=== PATIENT | female | born 1975 | race Caucasian/White ===

== ENCOUNTER 2021-03-20 17:07 | Day surgery (SDC) | payer OTHER, SELFPAY ==
[2021-03-20] VITALS (12 sets, daily range): BP systolic 115–133; BP diastolic 66–92; PULSE 72–90; RESP 13–20; TEMP 36.2–36.9; O2SAT 95–98; BMI 26.4
--- NOTE | 2021-03-20 17:16 | CTR_ITS ---
PROCEDURE INFORMATION: Exam: CT Abdomen And Pelvis With Contrast Exam date and time: 03/20/2021 5:34 PM Age: 45 years old Clinical indication: Abdominal pain; Localized; Right lower quadrant (rlq); Prior surgery; Surgery date: 6+ months; Surgery type: Gb; Patient HX: C/O rlq abd pain w n/v; Additional info: Appendicitis TECHNIQUE: Imaging protocol: Computed tomography of the abdomen and pelvis with contrast. Radiation optimization: All CT scans at this facility use at least one of these dose optimization techniques: automated exposure control; mA and/or kV adjustment per patient size (includes targeted exams where dose is matched to clinical indication); or iterative reconstruction. Contrast material: OMNI 300; Contrast volume: 95 ml; Contrast route: INTRAVENOUS (IV); COMPARISON: CT Chest/Abdomen/Pelvis w IV* 11/23/2017 8:49 PM RADIATION DOSE METRICS: Total DLP (mGy-cm): 1216.76 FINDINGS: Liver: Normal. No mass. Gallbladder and bile ducts: The gallbladder has been removed. Pancreas: Normal. No ductal dilation. Spleen: Normal. No splenomegaly. Adrenal glands: Normal. No mass. Kidneys and ureters: Normal. No hydronephrosis. Stomach and bowel: Unremarkable. No obstruction. No mucosal thickening. Appendix: Appendix is thickened measuring 11 mm. There is mild periappendiceal E all inflammatory stranding. No abscess is seen. Intraperitoneal space: Unremarkable. No free air. No significant fluid collection. Vasculature: Unremarkable. No abdominal aortic aneurysm. Lymph nodes: Unremarkable. No enlarged lymph nodes. Urinary bladder: Unremarkable as visualized. Reproductive: 2.7 cm cyst with benign features in the right ovary. Follow-up is not necessary. There are heterogeneous lesions in the uterine myometrium the largest of which measures 17 mm. These likely represent fibroids. Bones/joints: Unremarkable. No acute fracture. Soft tissues: Unremarkable. CT/CT abdomen pelvis w con* [id number] IMPRESSION: Findings consistent with acute appendicitis. Radiation Dose CTDIVOL = (mGy): DLP = 1216.76 (mGy-cm)
--- NOTE | 2021-03-20 17:18 | W.ED.ABDPA2 ---
HPI - Abdominal Pain General: Chief Complaint: Abdominal Pain Stated Complaint: FEELS LIKE KNIFE STUCK IN STOMACH SINCE LAST PM Time Seen by Provider: 03/20/21 17:16 History of Present Illness: HPI narrative: 45-year-old female presents with periumbilical pain that started last night and radiates into the right lower quadrant. Patient reports she feels like she has a knife stuck in her stomach. She started get nausea this afternoon. She last ate around 1 PM. As significant pain with the right hand and if she hits her right foot on the floor it radiates into the right lower quadrant. Patient has had her gallbladder out with no other surgeries. Associated Symptoms: Reports nausea and vomiting; Denies chills, dysuria and fever(s) Review of Systems Const: Denies: fever(s) or chills ENMT: Denies: throat pain Card: Denies: chest pain or palpitations Resp: Denies: dyspnea or productive cough GI: Reports: abdominal pain, nausea and vomiting : Denies: difficulty voiding or dysuria Musc: Denies: neck pain Skin/Breast: Denies: rash Neuro: Denies: headache(s) Psych: Denies: anxiety Physical Exam Const: COMMON NORMALS: patient oriented x3 GENERAL APPEARANCE: other (Uncomfortable, bent over with her hand on her stomach) HENMT: COMMON NORMALS: normocephalic and atraumatic HEAD & SCALP: normocephalic and atraumatic Resp: COMMON NORMALS: normal respiratory effort and No retractions Cardio: COMMON NORMALS: regular rate and regular rhythm RATE: regular rate RHYTHM: regular rhythm GI: COMMON NORMALS: Soft to palpation PALPATION: Yes Soft to palpation, Yes Tenderness to palpation present (GI) Details: RLQ, Yes Guarding due to palpation present (GI) and Yes Rebound tenderness present Extremity: COMMON NORMALS: normal to inspection and full ROM Neuro: COMMON NORMALS: patient oriented x3, moves all extremities and no focal motor deficits Psych: COMMON NORMALS: mental status grossly normal and cooperative ATTITUDE: Yes calm Skin: COMMON NORMALS: no rashes or lesions noted GENERAL SKIN EXAM: no rashes or lesions noted Coding Level of Care Code ED Assistant At Surgery for Jayy Momin
[2021-03-20] MEDS: ondansetron 2 mg/ML SDV 2 mL 4 MG IVP (17:46)
[2021-03-20] MEDS: sodium chloride 0.9% 1,000 ML 999 ML IV (17:47)
[2021-03-20] MEDS: fentaNYL 50 mcg/mL INJ 2mL IVP ×2 (17:47→19:28)
[2021-03-20 17:55] LABS: Add Urine Microscopic? YES; Bilirubin Urine 1+ (Negative); Blood Urine Neg (Negative); Glucose Urine UA Norm (Normal); Ketones Urine Negative (Negative); Leukocyte Esterase Urine 1+ (Negative); Nitrate Urine Negative (Negative); Protein Urine Neg (Negative); Specific Gravity, Urine 1.025 (1.005-1.030); Urine Appearance Hazy (CLEAR); Urine Color Yellow (Yellow); Urobilinogen Urine Norm (Negative); pH Urine 5 (5-7)
[2021-03-20 17:56] LABS: Add Urine Culture? No; Bacteria Urine 2+ /hpf; HCG Qualitative Urine. Negative (Negative)
[2021-03-20 18:02] LABS: Basophils % 0.5 %; Eosinophils # 0.2 10^3/uL (0.0-0.8); Eosinophils % 2.6 %; Hematocrit 41.9 % (37.0-47.0); Hemoglobin 14.1 g/dL (11.5-15.3); Lymphocytes # 2.4 10^3/uL (0.8-4.8); Lymphocytes % 28.3 %; Mean Corpuscular HGB Conc 33.7 g/dL (30.0-36.0); Mean Corpuscular Hemoglobin 31.5 pg (28.0-34.0); Mean Corpuscular Volume 93.7 fL (81-99); Mean Platelet Volume 10.6 fL (7.4-10.4); Monocytes # 0.9 10^3/uL (0.2-0.9); Monocytes % 10.2 %; Neutrophils # 4.87 10^3/uL (1.8-7.7); Neutrophils % 58.2 %; Nucleated Red Blood Cells % 0 %; Platelet Count 230 10^3/cmm (130-400); Red Blood Count 4.47 10^6/uL (4.1-5.3); Red Cell Distribution Width 12.3 % (12.1-15.1); White Blood Count 8.4 10^3/uL (4.0-10.0)
[2021-03-20] MEDS: iohexol 300 mg/mL 100 mL Btl IV (18:14)
[2021-03-20 18:55] LABS: Alanine Aminotransferase 6 U/L (0-33); Albumin Level 3.9 g/dL (3.5-5.2); Alkaline Phosphatase 72 IU/L (35-105); Anion Gap 10.8 (5-19); Aspartate Amino Transferase 16 U/L (0-32); Blood Urea Nitrogen 13 mg/dL (6-20); Calcium 8.1 mg/dL (8.5-10.5); Carbon Dioxide 28 mmol/L (22-29); Chloride 100 mmol/L (98-107); Globulin 2.9 g/dL (1.3-4.6); Glomerular Filtration Rate 107.6 mL/min (90-130); Glucose 86 mg/dL (65-115); Osmolality Calculated 279 mOsm/kg (285-295); Potassium 3.8 mmol/L (3.5-5.1); Sodium 135 mmol/L (136-145); Total Bilirubin 0.5 mg/dL (0.15-1.2); Total Protein 6.8 g/dL (6.6-8.7)
[2021-03-20] MEDS: piperacillin-tazobactam 3.375 GM in sodium chloride 0.9% (plus) 50 ML IV (19:04)
--- NOTE | 2021-03-20 20:00 | PC.NURSE ---
1958 Pt taken by stretcher to OR. A/O x4 at bedside belongings sent with patient
--- NOTE | 2021-03-20 20:08 | P.HP_ITS ---
Providers/Chief Complaint Primary Care Provider: Alice Elder MD Chief Complaint: FEELS LIKE KNIFE STUCK IN STOMACH SINCE LAST PM History of Present Illness Cadence Tang is a 45 year old female who presented to the ER today with 24- hour history of periumbilical pain. Patient states that the pain radiated to the right lower quadrant when she was moving. No relieving factors. She had some nausea today denies any vomiting. Denies any fevers chills constipation or diarrhea. Denies any urinary symptoms. No prior colonoscopy family history of colon cancer. Review of Systems General: Reports: 10 or more systems reviewed and unremarkable except in HPI and below Medications/Allergies Allergies Allergy/AdvReac Type Severity Reaction Status Date / Time erythromycin base Allergy Unknown Verified 03/20/21 17:16 PFSH Acute PFSH: Medical History (Updated 03/20/21 @ 20:08 by Matthew Cartagena MD) SVT (supraventricular tachycardia) Surgical History H/O cardiac radiofrequency ablation Status post laparoscopic cholecystectomy Status post surgery cervical ablation Vitals/I&O/Wt Last Vital Signs Temp 97.6 F 03/20/21 19:33 Pulse 72 03/20/21 19:33 Resp 16 03/20/21 19:33 BP 127/83 03/20/21 19:33 Pulse Ox 97 03/20/21 19:33 03/20/21 03/20/21 03/20/21 06:59 14:59 22:59 Intake Total 1050 / 1050 Balance 1050 / 1050 Weight last 48 hrs Weight 135 lb Physical Exam Narrative: EXAM NARRATIVE: HEENT: Normocephalic Eye: Sclera /conjunctiva normal Respiratory and chest: Bilateral clear breath sounds on auscultation Cardiovascular: Normal S1 and S2 heart sounds Abdomen: Soft to palpation, tender right lower quadrant, no guarding or rigidity Neurological: Oriented to place person and time Skin: Intact, no lesions appreciated on gross exam Data : 03/20/21 17:55 03/20/21 18:28 A&P Assessment and plan (1) Acute appendicitis: 45-year-old female with 24-hour history of right lower quadrant pain, nausea, tender right lower quadrant, WBC is 8.[address] scan showed acute appendicitis Plan for laparoscopic possible open appendectomy Procedure, risks, benefits and alternatives have been discussed with the patient who wishes to proceed with surgery. Status: Acute Qualifiers: Acute appendicitis type: with localized peritonitis Appendicitis abscess presence: without abscess Appendicitis gangrene presence: without gangrene Appendicitis perforation presence: without perforation Qualified Code(s): K35.30 - Acute appendicitis with localized peritonitis, without perforation or gangrene Attestations Medical Necessity Statement*: Acute appendicitis Coding Level of Care Code Acute Screw Cutter for [facility] Diagnoses Acute appendicitis K35.30 Acute appendicitis type: with localized peritonitis Appendicitis abscess presence: without abscess Appendicitis gangrene presence: without gangrene Appendicitis perforation presence: without perforation
--- NOTE | 2021-03-20 20:11 | PM.OP ---
Operative Report Date of procedure: March 20, 2021 Pre-op Diagnosis: acute appendicitis Post-op diagnosis: same Procedure Done: Laparoscopic appendectomy Specimens removed/disposition: Appendix Surgeon: Matthew Cartagena Anesthesia: General Condition: stable Disposition: PACU Procedure: The patient was taken to the Operating Room and intubated under general anesthesia after antibiotic had been administered. Using a 15 blade, a 1-cm infraumbilical incision was made and using open Erica technique, the peritoneal cavity was entered. A 12mm port with balloon was placed and 15 mm of pneumoperitoneum was created and 10-mm 30 degree scope was introduced. Two separate 5mm ports were placed in the left and right lower quadrant under direct visualization. The appendix was noted in the right lower quadrant and appeared acutely inflamed.. Using [place] forceps, an opening was made in the mesoappendix near the base of the appendix. An Endo ARIN stapler 45mm long 3.5mm blue load was introduced to divide the appendix at it's base. Using electrocautery, the mesoappendix including the appendicular artery was divided. There was no bleeding noted and the staple line appeared intact. EndoCatch bag was introduced to remove the appendix. All three ports were removed under direct visualization and there was no bleeding noted on the port sites. 10 cc of 0.5% Marcaine was infiltrated at the port sites. The fascia at the umbilical port was closed using figure of eight 0-Vicryl sutures and subcutaneous tissue was approximated using 3-0 Vicryl and skin at all 3 port sites was closed using 4-0 Monocryl and Dermabond. The patient was extubated and transferred to recovery room in stable condition
--- NOTE | 2021-03-20 20:13 | P.ANESASSM_ITS ---
Pre-Anesthetic Assessment Pre-Anesthetic Assessment: Height/Weight: Height 1.52 m Weight 61.235 kg Temp Pulse Resp BP Pulse Ox 97.6 F 72 16 127/83 95 03/20/21 19:33 03/20/21 20:04 03/20/21 20:04 03/20/21 20:04 03/20/21 20:04 Preop Diagnosis: acute appendicitis Proposed Procedure: Operation Date: 03/20/21 19:35 Proposed Procedures p Laparoscopic Appendectomy(Not Applicable) - Matthew Cartagena MD Operation Date: 03/20/21 20:20 Proposed Procedures p Laparoscopic Appendectomy(Not Applicable) - Matthew Cartagena MD Last intake: Intake Last Liquid Date 03/20/21 Last Liquid Time 13:00 Last Solid Date 03/20/21 Last Solid Time 13:00 Social: Social History: No alcohol and No tobacco Exam: Pre-Anes Outpt Exam: alert, oriented x 3, clear to auscultation bilaterally and regular rate & rhythm Airway: Submandibular: WNL Cervical ROM: WNL MP: 2 History/ROS: No significant complaints Pulmonary: Pulmonary: None reported CV/HEM: CV/HEM: Arrythmia Comments: Had a cardiac ablation and has not had any problems since : : None reported Hepatic: Hepatic: None reported GI: Comments: 24 hrs of central abdominal pain which has localized to the right lower quadrant Metabolic: Metabolic: None reported Musc/skel: Musc/skel: None reported Neuropsych: Neuropsych: None reported Anesthetic Plan: ASA status: 2E Anesthesia: General Risk of > 500 ml blood loss (7ml/kg in children): Yes, adequate IV access and fluids planned PFSH Anesthesia PFSH: Medical History (Updated 03/20/21 @ 20:11 by Matthew Cartagena MD) SVT (supraventricular tachycardia) Surgical History (Updated 03/20/21 @ 20:11 by Matthew Cartagena MD) H/O cardiac radiofrequency ablation S/P laparoscopic appendectomy (03/20/21) Status post laparoscopic cholecystectomy Status post surgery cervical ablation Data Anesthesia CBC & Chem 7: 03/20/21 17:55 03/20/21 18:28 Other Labs: Laboratory Results - last 48 hr 03/20/21 03/20/21 03/20/21 17:25 17:25 17:55 WBC 8.4 RBC 4.47 Hgb 14.1 Hct 41.9 MCV 93.7 MCH 31.5 MCHC 33.7 RDW 12.3 Plt Count 230 MPV 10.6 H Neut % (Auto) 58.2 Lymph % (Auto) 28.3 [place] % (Auto) 10.2 Eos % (Auto) 2.6 Baso % (Auto) 0.5 Neut # (Auto) 4.87 Lymph # (Auto) 2.4 [place] # (Auto) 0.9 Eos # (Auto) 0.2 Baso # (Auto) 0.0 Nucleated RBC % (auto) 0 Nucleated RBCs # 0.0 Sodium Potassium Chloride Carbon Dioxide Anion Gap BUN Creatinine GFR Calculation Glucose Calculated Osmolality Calcium Total Bilirubin AST ALT Alkaline Phosphatase Total Protein Albumin Globulin HCG, Qual Negative Urine Color Yellow Urine Appearance Hazy A Urine pH 5 Ur Specific [place] 1.025 Urine Protein Neg Urine Glucose (UA) Norm Urine Ketones Negative Urine Blood Neg Urine Nitrate Negative Urine Bilirubin 1+ H Urine Urobilinogen Norm Ur Leukocyte Esterase 1+ H Urine RBC None Urine WBC 5-10 H Ur Squamous Epith Cells 10-15 H Amorphous Sediment Not Reportable Urine Bacteria 2+ H 03/20/21 03/20/21 17:55 18:28 WBC RBC Hgb Hct MCV MCH MCHC RDW Plt Count MPV Neut % (Auto) Lymph % (Auto) [place] % (Auto) Eos % (Auto) Baso % (Auto) Neut # (Auto) Lymph # (Auto) [place] # (Auto) Eos # (Auto) Baso # (Auto) Nucleated RBC % (auto) Nucleated RBCs # Sodium Cancelled 135 L Potassium Cancelled 3.8 Chloride Cancelled 100 Carbon Dioxide Cancelled 28 Anion Gap Cancelled 10.8 BUN Cancelled 13 Creatinine Cancelled 0.6 GFR Calculation Cancelled 107.6 Glucose Cancelled 86 Calculated Osmolality Cancelled 279 L Calcium Cancelled 8.1 L Total Bilirubin Cancelled 0.5 AST Cancelled 16 ALT Cancelled 6 Alkaline Phosphatase Cancelled 72 Total Protein Cancelled 6.8 Albumin Cancelled 3.9 Globulin Cancelled 2.9 HCG, Qual Urine Color Urine Appearance Urine pH Ur Specific [place] Urine Protein Urine Glucose (UA) Urine Ketones Urine Blood Urine Nitrate Urine Bilirubin Urine Urobilinogen Ur Leukocyte Esterase Urine RBC Urine WBC Ur Squamous Epith Cells Amorphous Sediment Urine Bacteria Cardiac Studies: No Data to Display
--- NOTE | 2021-03-20 21:18 | SUR.PHASEI ---
[id number] PATIENT TO PACU AT THIS TIME FROM OR. NO DISTRESS. 3 INCISIONS TO ABDOMEN, CLOSED WITH DERMABOND, CLEAN,DRY AND INTACT.
--- NOTE | 2021-03-20 21:25 | SUR.PHASEI ---
212 DISCHARGE INSTRUCTIONS REVIEWED WITH PATIENT. VERBALIZED UNDERSTANDING OF TEACHING, FOLLOW UP APPOINTMENT AND NEW PRESCRIPTIONS.
--- NOTE | 2021-03-20 21:47 | SUR.PHASEI ---
2148 PATIENT DISCHARGED TO HOME IN CARE OF SPOUSE. NO DISTRESS. 3 INCISIONS, CDI. PATIENT TO VEHICLE VIA W/C.
== END 2021-03-20 21:47 | disposition home or self-care (01) ==
LOC: ER 19:45 → OR 20:00
PROVIDERS: Student in an Organized Health Care Education/Training Program; Emergency Provider Emergency Medicine; PCP Internal Medicine; Visit Provider Surgery
PROC: 0DTJ4ZZ Resection of Appendix, Percutaneous Endoscopic Approach (ICD-10-PCS; CPT 44970; principal; 2021-03-20 19:35)
DX: K35.30 Acute appendicitis with localized peritonitis, without perforation or gangrene (principal)
CPT/HCPCS: 44970; 36415; 74177; 80053; 81001; 81025; 85025; 88304; J1100; J1885; J2405; J2543; J2710; J3010; J3490; J7030; Q9967

== ENCOUNTER 2021-03-29 08:52 | Outpatient (CLI) | payer OTHER, SELFPAY ==
[2021-03-29 09:13] LABS: Basophils # 0.1 10^3/uL (0.0-0.1); Eosinophils # 0.6 10^3/uL (0.0-0.8); Eosinophils % 10.2 %; Hematocrit 41.3 % (37.0-47.0); Hemoglobin 13.7 g/dL (11.5-15.3); Lymphocytes # 1.8 10^3/uL (0.8-4.8); Lymphocytes % 29.1 %; Mean Corpuscular HGB Conc 33.2 g/dL (30.0-36.0); Mean Corpuscular Hemoglobin 31.1 pg (28.0-34.0); Mean Corpuscular Volume 93.7 fL (81-99); Mean Platelet Volume 9.5 fL (7.4-10.4); Monocytes # 0.6 10^3/uL (0.2-0.9); Monocytes % 9.7 %; Neutrophils # 3.13 10^3/uL (1.8-7.7); Neutrophils % 49.7 %; Nucleated Red Blood Cells % 0 %; Platelet Count 346 10^3/cmm (130-400); Red Blood Count 4.41 10^6/uL (4.1-5.3); Red Cell Distribution Width 11.9 % (12.1-15.1); White Blood Count 6.3 10^3/uL (4.0-10.0)
[2021-03-29 09:32] LABS: Anion Gap 10.4 (5-19); Blood Urea Nitrogen 13 mg/dL (6-20); Calcium 9.1 mg/dL (8.5-10.5); Carbon Dioxide 29 mmol/L (22-29); Chloride 104 mmol/L (98-107); Glomerular Filtration Rate 77.2 mL/min (90-130); Glucose 90 mg/dL (65-115); Osmolality Calculated 288 mOsm/kg (285-295); Potassium 4.4 mmol/L (3.5-5.1); Sodium 139 mmol/L (136-145)
== END 2021-03-29 08:53 | disposition home or self-care (01) ==
PROVIDERS: PCP Internal Medicine; Visit Provider Surgery
DX: Z90.49 Acquired absence of other specified parts of digestive tract (principal); Z98.890 Other specified postprocedural states
CPT/HCPCS: 36415; 80048; 85025

== ENCOUNTER → 2022-01-20 08:47 | Outpatient (BNVA) | payer OTHER, SELFPAY | PROVIDERS: PCP Internal Medicine; Visit Provider Nurse Practitioner Family | DX: R53.83 Other fatigue (principal); I10 Essential (primary) hypertension; N95.1 Menopausal and female climacteric states; E78.5 Hyperlipidemia, unspecified; F41.9 Anxiety disorder, unspecified; R03.0 Elevated blood-pressure reading, without diagnosis of hypertension; R45.86 Emotional lability | CPT/HCPCS: 80053; 80061; 82672; 83001; 83002; 84443; 85025 ==

== ENCOUNTER 2022-02-28 13:18 | Outpatient (CLI) | payer OTHER, SELFPAY ==
--- NOTE | 2022-02-28 | USCV_ITS ---
Cadence Tang Age: 46 Gender: F : 1975 Exam Date: 02/28/2022 13:52 Ordering Phys: Janki Rojas-Jazmine PELAEZ Technologist: Esteban Jaimes Exam Location: [facility] [place] Indication: edema BP: 100 / 80 HR: 68 Rhythm: Sinus Technical Quality: Adequate MEASUREMENTS (Male / Female) Normal Values 2D ECHO LV Diastolic Diameter PLAX 3.8 cm 4.2 - 5.9 / 3.9 - 5.3 cm LV Systolic Diameter PLAX 2.6 cm IVS Diastolic Thickness 1.1 cm 0.6 - 1.0 / 0.6 - 0.9 cm IVS Systolic Thickness 1.5 cm LVPW Diastolic Thickness 1.5 cm 0.6 - 1.0 / 0.6 - 0.9 cm LVPW Systolic Thickness 1.6 cm LVOT Diameter 2.0 cm LV Ejection Fraction 2D Teich 60.1 % LV Ejection Fraction MOD 2C 62.6 % LV Ejection Fraction 2C AL 63.1 % LA Diameter 2.8 cm LA Width 3.5 cm LA Height 3.8 cm RA Width 3.0 cm RA Height 3.8 cm Aorta at Sinotubular Diameter 2.1 cm M-MODE Aortic Annulus Diameter 2.6 cm LA Ao Ratio MM 0.9 MV E Point Septal Separation 0.3 cm DOPPLER AV Peak Velocity 124.0 cm/s LVOT Peak Velocity 96.0 cm/s AV Area Cont Eq vti 2.4 cm squared AV Area Cont Eq pk 2.4 cm squared MV Area PHT 4.5 cm squared Mitral E to A Ratio 1.5 MV E' Velocity 44.0 cm/s Mitral E to MV E' Ratio 1.6 Mitral E to LV E' Lateral Ratio 5.2 Mitral E to LV E' Septal Ratio 1.0 TR Peak Velocity 200.7 cm/s TR Peak Gradient 16.1 mmHg TR Mean Velocity 124.4 cm/s TR Mean Gradient 7.0 mmHg TR Velocity Time Integral 41.0 cm Right Atrial Pressure 3.0 mmHg Pulmonary Artery Systolic Pressu 19.1 mmHg RV Acceleration Time 0.2 s RV Ejection Time 0.3 s RV AcT/ET 0.5 FINDINGS Left Ventricle Normal left ventricular size and systolic function, EF 64 %. No regional wall motion abnormalities. Right Ventricle The right ventricle is normal in size and function. Right Atrium The right atrium is normal in size. Left Atrium The left atrium is normal in size. Mitral Valve Trace to mild mitral valve regurgitation. Aortic Valve No gross abnormality noted Tricuspid Valve Mild tricuspid valve regurgitation. Pulmonic Valve No gross abnormalities noted Pericardium Normal pericardium without effusion. Aorta Normal ascending aorta dimension. CONCLUSIONS Normal left ventricular size and systolic function, EF 64 %. No regional wall motion abnormalities. Mild tricuspid valve regurgitation. Trace to mild mitral valve regurgitation. There is no pericardial effusion. There are no intracardiac masses. No intracardiac shunts, based on color flow Doppler examination No similar previous studies are available for comparison Dr Maribeth Bedolla MD FAC (Electronically Signed) Final Date: 06 Mar 2022 08:54 S
== END 2022-02-28 13:19 | disposition home or self-care (01) ==
LOC: RAD 13:21
PROVIDERS: PCP Internal Medicine; Visit Provider Nurse Practitioner Family
DX: R60.9 Edema, unspecified (principal)
CPT/HCPCS: 93306

== ENCOUNTER 2022-03-10 06:57 | Outpatient (CLI) | payer OTHER, SELFPAY ==
--- NOTE | 2022-03-10 07:15 | US_ITS ---
WS: [id number] ULTRASOUND PELVIS TECHNIQUE: Transabdominal and transvaginal. ULTRASOUND PELVIS TECHNIQUE: Transabdominal. CLINICAL INFORMATION: R10.2 - Pelvic and perineal pain : No. COMPARISON: None. FINDINGS: Cervix measures 3.6 cm Uterus Orientation: Anteverted. Size: 9.9 cm x 6.0 cm x 3.3 cm. Masses: Multiple fibroids visualized largest in the fundus measuring 1.9 x 1.7 x 1.6 cm and 2.1 x 1.8 x 1.3 cm Cervix: 3.6 cm. Incidental nabothian cysts in the cervix. Endometrium: History of endometrial ablation. Endometrium thickness: 0.2 cm. Adnexa: RIGHT ovarian cyst measuring 1.5 x 1.1 x 1.6 cm with a small amount of internal debris likely hemorrhagic cyst Right ovary size: 2.7 cm x 3.0 cm x 1.6 cm. Right ovary volume: 6.5 ccm3. Left ovary size: 2.2 cm x 2.4 cm x 0.9 cm. Left ovary volume: 2.5 ccm3 Free fluid: None. Other findings: None. US/US pelvic with transvaginal IMPRESSION: 1. Normal endometrium measuring 2.1 mm. History of endometrial ablation. 2. Multiple fibroids visualized largest in the fundus measuring 1.9 x 1.7 x 1. 6 cm and 2.1 x 1.8 x 1.3 cm 3. Both ovaries are normal in appearance with normal vascularity. 4. Hemorrhagic RIGHT ovary measuring 1.5 x 1.1 x 1.6 cm with a small amount of internal debris 5. No free fluid in the cul-de-sac.
== END 2022-03-10 06:58 | disposition home or self-care (01) ==
LOC: RAD 06:58
PROVIDERS: PCP Internal Medicine; Visit Provider Nurse Practitioner Family
DX: R10.2 Pelvic and perineal pain (principal)
CPT/HCPCS: 76830; 76856

== ENCOUNTER → 2022-11-10 10:17 | Outpatient (BNVA) | payer OTHER, SELFPAY | PROVIDERS: PCP Nurse Practitioner Family; Visit Provider Nurse Practitioner Family | DX: M25.50 Pain in unspecified joint (principal); M25.40 Effusion, unspecified joint; I10 Essential (primary) hypertension | CPT/HCPCS: 86160; 86162; 86235; 86255; 86376; 86431 ==

== ENCOUNTER → 2023-03-06 09:57 | Outpatient (BNVA) | payer OTHER, SELFPAY | PROVIDERS: PCP Nurse Practitioner Family; Visit Provider Nurse Practitioner Family | DX: B97.89 Other viral agents as the cause of diseases classified elsewhere (principal); J02.8 Acute pharyngitis due to other specified organisms; R35.0 Frequency of micturition; J02.9 Acute pharyngitis, unspecified | CPT/HCPCS: 81000; 87086; 87880 ==

== ENCOUNTER → 2023-06-19 10:35 | Outpatient (BNVA) | payer OTHER, SELFPAY | PROVIDERS: PCP Nurse Practitioner Family; Visit Provider Nurse Practitioner Family | DX: E07.9 Disorder of thyroid, unspecified (principal); Z79.899 Other long term (current) drug therapy | CPT/HCPCS: 80053; 80061; 83036; 84439; 84443; 84481 ==

== ENCOUNTER 2023-07-06 08:42 | Outpatient (CLI) | payer OTHER, SELFPAY ==
--- NOTE | 2023-07-06 09:00 | US_ITS ---
WS: [id number] THYROID ULTRASOUND HISTORY: E07.9 - Disorder of thyroid, unspecified COMPARISON: None available. Right lobe: 1.8 cm x 1.5 cm x 4.5 cm (w x ap x l). Volume: 6.2 cm3. Normal sized gland. Hypoechoic nodule measures 7 x 6 x 10 mm in the superior pole. Mildly hypoechoic with no echogenic foci. No increased vascularity. Left lobe: 1.6 cm x 1.2 cm x 4.7 cm (w x ap x l). Volume: 4.7 cm3. Normal size and echotexture. No significant or dominant nodules are present. Isthmus: 0.2 cm. IMPRESSION: TI-RADS 2. No suspicious nodules. Normal size thyroid. No hypervascularity.
== END 2023-07-06 08:43 | disposition home or self-care (01) ==
PROVIDERS: PCP Nurse Practitioner Family; Visit Provider Nurse Practitioner Family
DX: E07.9 Disorder of thyroid, unspecified (principal)
CPT/HCPCS: 76536

== ENCOUNTER → 2023-10-12 10:44 | Outpatient (BNVA) | payer OTHER, SELFPAY | PROVIDERS: PCP Nurse Practitioner Family; Visit Provider Nurse Practitioner Family | DX: R53.83 Other fatigue (principal) | CPT/HCPCS: 80053; 84439; 84443; 84481; 85025 ==

== ENCOUNTER 2023-10-15 09:45 | Outpatient (CLI) | payer OTHER, SELFPAY ==
--- NOTE | 2023-10-15 09:49 | XR_ITS ---
WS: [id number] Exam: XR elbow LT min 3V* [id number] Date/Time of Exam: 10/15/2023 9:53 AM Reason For Exam: M25.522 - Pain in left elbow No fracture or dislocation. No joint effusion identified. Soft tissues are unremarkable. IMPRESSION: 1. No fracture or other significant finding.
== END 2023-10-15 09:46 | disposition home or self-care (01) ==
LOC: RAD 09:45
PROVIDERS: PCP Nurse Practitioner Family; Visit Provider Nurse Practitioner Family
DX: M25.522 Pain in left elbow (principal)
CPT/HCPCS: 73080

== ENCOUNTER → 2024-09-19 10:11 | Outpatient (BNVA) | payer OTHER, SELFPAY | PROVIDERS: PCP Nurse Practitioner Family; Visit Provider Nurse Practitioner Family | DX: E78.5 Hyperlipidemia, unspecified (principal); F41.9 Anxiety disorder, unspecified; I10 Essential (primary) hypertension; M25.50 Pain in unspecified joint | CPT/HCPCS: 80053; 80061; 84443; 86140 ==

== ENCOUNTER → 2025-01-06 15:35 | Outpatient (BNVA) | payer OTHER, SELFPAY | PROVIDERS: PCP Nurse Practitioner Family; Visit Provider Nurse Practitioner Family | DX: I10 Essential (primary) hypertension (principal); K62.5 Hemorrhage of anus and rectum; E07.9 Disorder of thyroid, unspecified; R53.83 Other fatigue | CPT/HCPCS: 80053; 80061; 84443; 85025 ==